=== PATIENT | female | born 1995 | race Caucasian/White ===

== ENCOUNTER 2019-05-31 19:13 | Emergency (ER) | payer MEDICARE, OTHER ==
[~2019-05-31] VITALS: Ht 165.1 cm; Wt 97.7 kg
[2019-05-31] MEDS ORDERED: METHOCARBAMOL 500 MG TABLET PO ONE (20:45)
[2019-05-31] MEDS ORDERED: KETOROLAC TROMETHAMINE 10 MG TABLET PO ONE (20:45)
[2019-05-31 21:22] VITALS: BP 115/68
== END 2019-05-31 20:45 | disposition home or self-care (01) ==
LOC: EMS 19:15
DX: S43.402A Unspecified sprain of left shoulder joint, initial encounter (principal); V49.49XA Driver injured in collision with other motor vehicles in traffic accident, initial encounter; Y93.89 Activity, other specified; Y92.488 Other paved roadways as the place of occurrence of the external cause; Y99.8 Other external cause status